=== PATIENT | female | born 1955 | race Caucasian/White ===

== ENCOUNTER 2017-05-12 11:16 | Inpatient (IN) | payer OTHER ==
[2017-05-12] MEDS ORDERED: DIPH/PERTUSS(ACELL)/TETANUS VAC/PF 0.5 ML SYR (>=10YO) IM ONE (11:29)
[2017-05-12] MEDS ORDERED: HYDROMORPHONE HCL INJ/PF 2 MG/ML AMPULE IV ONE (11:29)
[2017-05-12] MEDS ORDERED: ONDANSETRON HCL INJ/PF 4 MG/2 ML SDV IV ONE (11:29)
--- NOTE | 2017-05-12 11:36 | ER Document Report ---
ED Fall - General Mode of Arrival: Medic Information source: Patient - HPI Occurred: Just prior to arrival Where: Outdoors Context: Lost balance Associated symptoms: Other - see notes above Location of injury/pain: Lower extremity - left lower <JANE FORD - Last Filed: 05/12/17 12:59> <RYANSHADY - Last Filed: 05/12/17 14:18> - General Chief Complaint: Fall Injury Stated Complaint: FALL/LEFT HIP PAIN Time Seen by Provider: 05/12/17 11:19 Notes: 61-year-old female with no known prior medical problems (hasn't seen a physician in 'years') presents to the ED via EMS complaining of left leg pain after falling approximately 2.5-3 feet off stairs onto a concrete floor just prior to arrival. Patient reports that she was standing on stairs cleaning a window when she went to stretch, lost her balance, and proceeded to fall. Patient was not able to walk on her left leg after the fall. Patient reports nausea, but denies hitting her head, loss consciousness, shortness of breath, chest pain, or abdominal pain. Patient is not on any blood thinning medications. (JANE FORD) - Related data Allergies/Adverse Reactions: No Known Allergies Allergy (Verified 05/12/17 11:19) Home Medications: Current Home Medications No Home Medications 05/12/17 [History] Past Medical History - General Information source: Patient - Social History Smoking Status: Never Smoker Chew tobacco use (# tins/day): No Frequency of alcohol use: None Drug Abuse: None Family History: Reviewed & Not Pertinent Past Surgical History: Reports: Hx Tubal Ligation <JANE FORD - Last Filed: 05/12/17 12:59> Review of Systems - Review of Systems Constitutional: No symptoms reported EENT: No symptoms reported Cardiovascular: No symptoms reported. denies: Chest pain Respiratory: No symptoms reported. denies: Short of breath Gastrointestinal: See HPI, Nausea. denies: Abdominal pain Genitourinary: No symptoms reported Female Genitourinary: No symptoms reported Musculoskeletal: See HPI, Other - left leg pain Skin: No symptoms reported Hematologic/Lymphatic: No symptoms reported Neurological/Psychological: No symptoms reported. denies: Lost consciousness -: Yes All other systems reviewed and negative <JANE FORD - Last Filed: 05/12/17 12:59> Physical Exam <JANE FORD - Last Filed: 05/12/17 12:59> <SHADY MCKEON - Last Filed: 05/12/17 14:18> - Vital signs Vitals: Temp Pulse Resp BP Pulse Ox 97.6 F 93 16 157/72 H 96 05/12/17 11:19 05/12/17 11:19 05/12/17 11:19 05/12/17 11:19 05/12/17 11:19 - Notes Notes: GENERAL: Alert, interacts well. No acute distress. HEAD: Normocephalic, atraumatic. EYES: Pupils equal, round, and reactive to light. Extraocular movements intact. ENT: Oral mucosa moist, tongue midline. NECK: Full range of motion. Supple. Trachea midline. LUNGS: Clear to auscultation bilaterally, no wheezes, rales, or rhonchi. No respiratory distress. HEART: Regular rate and rhythm. No murmurs, gallops, or rubs. ABDOMEN: Soft, non-tender. Non-distended. Bowel sounds present in all 4 quadrants. EXTREMITIES: No edema, radial and dorsalis pedis pulses 2/4 bilaterally. No cyanosis. Left lower extremity appears shortened, externally rotated, and is propped on a pillow. There is a superficial abrasion to the right medial malleolus. Bilateral toes are able to move. Normal sensation to the right foot with fainter sensation to the left foot. Pelvis is stable. There is tenderness to palpation to the greater trochanter and upper thigh of the left lower extremity. NEUROLOGICAL: Alert and oriented x3. Normal speech. PSYCH: Normal affect, normal mood. SKIN: Warm, dry, normal turgor. (JANE FORD) Course - Laboratory Result Diagrams: 05/12/17 12:38 05/12/17 12:38 - Consults Dr. Mary Time consulted: 12:06 Dr. Pham Time consulted: 12:08 <JANE FORD - Last Filed: 05/12/17 12:59> - Laboratory Result Diagrams: 05/12/17 12:38 05/12/17 12:38 <SHADY MCKEON - Last Filed: 05/12/17 14:18> - Re-evaluation Re-evalutation: 05/12/17 14:07 X-ray shows comminuted left hip fracture intertrochanteric and proximal left femur. Discussed with Dr. Mary who asked that the patient be admitted by the hospitalist service given the unknown prior medical history. Hospitalist service under Dr. Pham agrees to admit the patient, Dr. Mary will consult. Patient will have surgery tomorrow. Preoperative blood work was ordered and shows hyperglycemia as well as a leukocytosis, no abnormality in coagulation. EKG is nonischemic. (SHADY MCKEON) - Vital Signs Vital signs: Temp Pulse Resp BP Pulse Ox 97.3 F 63 16 156/71 H 100 05/12/17 14:04 05/12/17 14:04 05/12/17 14:04 05/12/17 14:04 05/12/17 14:04 - Laboratory Laboratory results interpreted by me: 05/12/17 05/12/17 12:38 12:38 WBC 13.9 H Seg Neutrophils % 84.9 H Lymphocytes % 9.1 L Absolute Neutrophils 11.8 H BUN 25 H Glucose 182 H - Consults Dr. Mary Reason for consultation: 05/12/17 12:06 Patient was discussed with Dr. Mary who asks to contact the hospitalist and have them starts pre-op work up and to admit secondary to unknown past medical history 05/12/17 12:12 Dr. Mary was notified that the patient will be admitted. (JANE FORD) Dr. Pham Reason for consultation: 05/12/17 12:08 Patient was discussed with Dr. Pham and will admit the patient for pre-op and surgical clearance. (JANE FORD) Discharge <JANE FORD - Last Filed: 05/12/17 12:59> - Discharge Admitting Provider: Errolist - [facility] Admitted: Telemetry <SHADY MCKEON - Last Filed: 05/12/17 14:18> - Discharge Clinical Impression: Hip fracture Qualifiers: Encounter type: initial encounter Fracture type: closed Laterality: left Qualified Code(s): S72.002A - Fracture of unspecified part of neck of left femur , initial encounter for closed fracture Condition: Good Disposition: ADMITTED INPATIENT Scribe Attestation: 05/12/17 14:18 I personally performed the services described in the documentation, reviewed and edited the documentation which was dictated to the scribe in my presence, and it accurately records my words and actions. (SHADY MCKEON) Scribe Documentation - Scribe Written by Scribe:: Chinyere Cruz, 05/12/2017 1216 acting as scribe for :: Ryan <JANE FORD - Last Filed: 05/12/17 12:59>
--- NOTE | 2017-05-12 12:34 | RADIOLOGY REPORT (SQ) ---
EXAM DESCRIPTION: CHEST SINGLE VIEW COMPLETED DATE/TIME: 05/12/2017 12:02 pm REASON FOR STUDY: FALL COMPARISON: None. EXAM PARAMETERS: NUMBER OF VIEWS: One view. TECHNIQUE: Single frontal radiographic view of the chest acquired. RADIATION DOSE: NA LIMITATIONS: None. FINDINGS: LUNGS AND PLEURA: No opacities, masses or pneumothorax. No pleural effusion. MEDIASTINUM AND HILAR STRUCTURES: No masses. Contour normal. HEART AND VASCULAR STRUCTURES: Heart normal in size. Normal vasculature. BONES: No acute findings. HARDWARE: None in the chest. OTHER: No other significant finding. IMPRESSION: NO ACUTE RADIOGRAPHIC FINDING IN THE CHEST. TECHNICAL DOCUMENTATION: JOB ID: [id number]
--- NOTE | 2017-05-12 12:36 | RADIOLOGY REPORT (SQ) ---
EXAM DESCRIPTION: FEMUR LEFT COMPLETED DATE/TIME: 05/12/2017 12:02 pm REASON FOR STUDY: fall COMPARISON: None. NUMBER OF VIEWS: Two views. TECHNIQUE: Two radiographic images acquired of the left femur to include hip and knee in at least on e projection. LIMITATIONS: None. FINDINGS: MINERALIZATION: Osteopenic BONES: Acute comminuted intertrochanteric fracture left proximal femur with large lesser trochanter a nd greater trochanter fragments. Mild foreshortening and varus angulation at the fracture site. Rem ainder of the visualized left femur is intact. SOFT TISSUES: No obvious swelling or foreign body. OTHER: No other significant finding. IMPRESSION: Acute comminuted intertrochanteric left proximal femoral fracture TECHNICAL DOCUMENTATION: JOB ID: [id number] [employer]- All Rights Reserved
--- NOTE | 2017-05-12 12:37 | RADIOLOGY REPORT (SQ) ---
EXAM DESCRIPTION: PELVIS AP COMPLETED DATE/TIME: 05/12/2017 12:02 pm REASON FOR STUDY: fall, L leg rotated and shortened COMPARISON: Left femur films same date NUMBER OF VIEWS: One view TECHNIQUE: AP Pelvis LIMITATIONS: None. FINDINGS: MINERALIZATION: Osteopenia HIPS: Acute comminuted left intertrochanteric proximal femoral fracture with varus angulation and mil d foreshortening. No significant left or right hip joint space narrowing. No right hip fracture. PELVIS AND SACRUM: No acute fracture or dislocation. No worrisome bone lesions. PUBIS AND ISCHIUM: No acute fracture. LOWER LUMBAR SPINE: No significant findings as visualized. SOFT TISSUES: No findings. OTHER: No other significant finding. IMPRESSION: Acute comminuted left intertrochanteric proximal femoral fracture with varus angulation and mild foreshortening TECHNICAL DOCUMENTATION: JOB ID: [id number] [employer]- All Rights Reserved
[2017-05-12] MEDS ORDERED: PROMETHAZINE HCL INJ 25 MG/1 ML VIAL IM ONE (12:44)
[2017-05-12 12:49] LABS: ABSOLUTE LYMPHOCYTES (AUTO) 1.3 10^3/uL (0.5-4.7); ABSOLUTE MONOCYTES (AUTO) 0.8 10^3/uL (0.1-1.4); ABSOLUTE NEUT (AUTO) 11.8 10^3/uL (1.7-8.2); BASOPHILS % (AUTO) 0.3 % (0-2); EOSINOPHILS % (AUTO) 0.3 % (0-6); HEMATOCRIT 37.9 % (36.0-47.0); HEMOGLOBIN 12.7 g/dL (12.0-15.5); HGB HCT DIFFERENCE 0.2; LYMPHOCYTES % (AUTO) 9.1 % (13-45); MEAN CORPUSCULAR HEMOGLOBIN 31.3 pg (27.0-33.4); MEAN CORPUSCULAR HGB CONC 33.5 g/dL (32.0-36.0); MEAN CORPUSCULAR VOLUME 93 fl (80-97); MONOCYTES % (AUTO) 5.4 % (3-13); RED BLOOD COUNT 4.06 10^6/uL (3.72-5.28); RED CELL DISTRIBUTION WIDTH 12.6 % (11.5-14.0); SEGMENTED NEUTROPHILS % (AUTO) 84.9 % (42-78); WHITE BLOOD COUNT 13.9 10^3/uL (4.0-10.5)
[2017-05-12 13:05] LABS: PROTHROMBIN TIME 12.6 SEC (11.4-15.4)
[2017-05-12 13:09] LABS: ALANINE AMINOTRANSFERASE 42 U/L (9-52); ALBUMIN 3.9 g/dL (3.5-5.0); ALKALINE PHOSPHATASE 52 U/L (38-126); ANION GAP 11 (5-19); ASPARTATE AMINO TRANSFERASE 24 U/L (14-36); BILIRUBIN,DIRECT 0.2 mg/dL (0.0-0.4); BILIRUBIN,TOTAL 0.6 mg/dL (0.2-1.3); BLOOD UREA NITROGEN 25 mg/dL (7-20); CALCIUM 8.8 mg/dL (8.4-10.2); CARBON DIOXIDE 23 mmol/L (22-30); CHLORIDE 104 mmol/L (98-107); CREATININE RESULT 0.82 mg/dL (0.52-1.25); GLUCOSE 182 mg/dL (75-110); SODIUM 138.4 mmol/L (137-145); TOTAL PROTEIN 6.8 g/dL (6.3-8.2)
--- NOTE | 2017-05-12 13:37 | PDOC CONSULTATION ---
Consultation Consult Date: 05/12/17 Consult reason:: Left hip fracture History of Present Illness History of Present Illness: BETTY ALONSO is a 61 year old female contributory past medical history who fell off a ladder onto her left hip sustaining a left hip injury. She was unable to weight-bear. She is brought to the emergency room her left intratrochanteric femur fracture was identified. Orthopedics was consulted for fracture management. Past Medical History Cardiac Medical History: Reports: None Past Surgical History Past Surgical History: Reports: Tubal Ligation Social History Information Source: Patient, [facility] Records Lives with: Family Smoking Status: Never Smoker Frequency of Alcohol Use: None Hx Recreational Drug Use: No Hx Prescription Drug Abuse: No Family History Family History: Reviewed & Not Pertinent Parental Family History Reviewed: No Children Family History Reviewed: No Sibling(s) Family History Reviewed.: No Medication/Allergy Home Medications: No Home Medications 05/12/17 Allergies/Adverse Reactions: No Known Allergies Allergy (Verified 05/12/17 11:19) Review of Systems All systems: as per [facility] Physical Exam Vital Signs: Temp Pulse Resp BP Pulse Ox 36.4 C 93 18 157/72 H 96 05/12/17 11:19 05/12/17 11:19 05/12/17 11:20 05/12/17 11:19 05/12/17 11:19 Intake & Output 05/11/17 05/12/17 05/13/17 06:59 06:59 06:59 Weight 64.592 kg Physical Exam: This is a very moderately built middle-aged white female lying on [facility] with the left lower extremity flexed on a pillow. She is in minor to moderate distress. General appearance: PRESENT: severe distress Head exam: PRESENT: normocephalic Eye exam: PRESENT: EOMI Respiratory exam: PRESENT: unlabored Cardiovascular exam: PRESENT: RRR Pulses: PRESENT: +1 pedal pulses bilateral Vascular exam: PRESENT: normal capillary refill GI/Abdominal exam: PRESENT: soft Rectal exam: PRESENT: deferred Extremities exam: PRESENT: other - Left lower extremity is flexed on a pillow. There is brisk capillary refill in the toes. Sensory examination is intact to light touch. Motor function to great toe flexion extension is intact. Neurological exam: PRESENT: alert, awake, oriented to person, oriented to place , oriented to time, oriented to situation, CN II-XII grossly intact. ABSENT: motor sensory deficit Psychiatric exam: PRESENT: appropriate affect, normal mood. ABSENT: homicidal ideation, suicidal ideation Skin exam: PRESENT: dry, intact, warm. ABSENT: cyanosis, rash Results Laboratory Results: 05/12/17 12:38 05/12/17 12:38 05/12/17 05/12/17 12:38 12:38 WBC 13.9 H RBC 4.06 Hgb 12.7 Hct 37.9 MCV 93 MCH 31.3 MCHC 33.5 RDW 12.6 Plt Count 252 Seg Neutrophils % 84.9 H Lymphocytes % 9.1 L Monocytes % 5.4 Eosinophils % 0.3 Basophils % 0.3 Absolute Neutrophils 11.8 H Absolute Lymphocytes 1.3 Absolute Monocytes 0.8 Absolute Eosinophils 0.0 Absolute Basophils 0.0 Sodium 138.4 Potassium 4.0 Chloride 104 Carbon Dioxide 23 Anion Gap 11 BUN 25 H Creatinine 0.82 Est GFR ( Amer) > 60 Est GFR (Non-Af Amer) > 60 Glucose 182 H Calcium 8.8 Total Bilirubin 0.6 AST 24 ALT 42 Alkaline Phosphatase 52 Total Protein 6.8 Albumin 3.9 Impressions: Chest X-Ray 05/12/17 00:00 IMPRESSION: NO ACUTE RADIOGRAPHIC FINDING IN THE CHEST. Femur X-Ray 05/12/17 00:00 IMPRESSION: Acute comminuted intertrochanteric left proximal femoral fracture Pelvis X-Ray 05/12/17 11:29 IMPRESSION: Acute comminuted left intertrochanteric proximal femoral fracture with varus angulation and mild foreshortening Status: Imported from PACS Assessment & Plan - Diagnosis (1) Intertrochanteric fracture of left femur Is this a current diagnosis for this admission?: YesPlan: 61-year-old white female with a left intratrochanteric femur fracture status post a fall. I believe she would be best served with an open reduction internal fixation under choice anesthesia. Performed tomorrow morning at 8 AM pending medical clearance - Time Time Spent: 50 to 70 Minutes Critical Time spent with patient: 15-24 minutes Anticipated discharge: Home with Homehealth
[2017-05-12] MEDS ORDERED: PROMETHAZINE HCL INJ 50 MG/1 ML VIAL IM ONE (14:00)
[2017-05-12] MEDS ORDERED: PROMETHAZINE HCL 25 MG TABLET PO PRN (14:10)
[2017-05-12] MEDS ORDERED: NORMAL SALINE 1000 ML 1,000 ML IV PRN (14:10)
[2017-05-12] MEDS ORDERED: ONDANSETRON HCL INJ/PF 4 MG/2 ML SDV IV PRN (14:10)
[2017-05-12] MEDS ORDERED: ACETAMINOPHEN 325 MG TABLET PO PRN (14:10)
--- NOTE | 2017-05-12 14:33 | PDOC H&P ---
History of Present Illness Admission Date/PCP: 05/12/17 13:50 Patient complains of: Left hip pain History of Present Illness: BETTY ALONSO is a 61 year old female without any significant past medical history who fell off a ladder onto her left hip sustaining a left hip injury while trying to clean the window in her house. She was unable to weight-bear on the left side and having difficulty walking due to pain. The ambulance was called and the patient was given Dilaudid where she started feeling nauseous after. She was brought to the emergency room and hip x-ray revealed left intratrochanteric femur fracture was identified. Orthopedic service was consulted and requested medical service to admit the patient. Patient denies any dizziness nor lightheadedness nor any chest pain or shortness of breath prior to the episode. Likewise there is no chills or fever nausea nor vomiting or diarrhea. Past Medical History Cardiac Medical History: Reports: None Past Surgical History Past Surgical History: Reports: Tubal Ligation Social History Lives with: Family Smoking Status: Never Smoker Frequency of Alcohol Use: None Hx Recreational Drug Use: No Drugs: None Hx Prescription Drug Abuse: No Family History Family History: Malignancy - Lungs and ovarian Parental Family History Reviewed: Yes Children Family History Reviewed: Yes Sibling(s) Family History Reviewed.: Yes Medication/Allergy Home Medications: No Home Medications 05/12/17 Allergies/Adverse Reactions: No Known Allergies Allergy (Verified 05/12/17 11:19) Review of Systems Constitutional: ABSENT: chills, fever(s), headache(s), night sweats, weight gain , weight loss Eyes: ABSENT: visual disturbances Ears: ABSENT: hearing changes Nose, Mouth, and Throat: ABSENT: headache(s), mouth pain, sore throat, vertigo Cardiovascular: ABSENT: chest pain, dyspnea on exertion, edema, orthropnea, palpitations Respiratory: ABSENT: cough, dyspnea, hemoptysis, sputum Gastrointestinal: PRESENT: nausea. ABSENT: abdominal pain, coffee ground emesis , constipation, diarrhea, hematemesis, hematochezia, melena, vomiting Genitourinary: ABSENT: difficulty urinating, dysuria, hematuria Musculoskeletal: ABSENT: joint swelling Integumentary: ABSENT: pruritus, rash, wounds Neurological: ABSENT: abnormal gait, abnormal speech, confusion, dizziness, focal weakness, syncope Psychiatric: ABSENT: anxiety, depression, homidical ideation, suicidal ideation Endocrine: ABSENT: cold intolerance, heat intolerance, polydipsia, polyuria Hematologic/Lymphatic: ABSENT: easy bleeding, easy bruising Physical Exam Vital Signs: Temp Pulse Resp BP Pulse Ox 97.3 F 63 16 156/71 H 100 05/12/17 14:04 05/12/17 14:04 05/12/17 14:04 05/12/17 14:04 05/12/17 14:04 General appearance: PRESENT: no acute distress, well-developed, well-nourished Head exam: PRESENT: atraumatic, normocephalic Eye exam: PRESENT: conjunctiva pink, EOMI, PERRLA. ABSENT: scleral icterus Ear exam: PRESENT: normal external ear exam Mouth exam: PRESENT: moist, neck supple, tongue midline Throat exam: ABSENT: post pharyngeal erythema, tonsillar erythema Neck exam: ABSENT: carotid bruit, JVD, lymphadenopathy, thyromegaly Respiratory exam: PRESENT: clear to auscultation kerrie. ABSENT: rales, rhonchi, wheezes Cardiovascular exam: PRESENT: RRR. ABSENT: diastolic murmur, rubs, systolic murmur Pulses: PRESENT: normal dorsalis pedis pul Vascular exam: PRESENT: normal capillary refill GI/Abdominal exam: PRESENT: normal bowel sounds, soft. ABSENT: distended, guarding, mass, organolmegaly, rebound, tenderness Rectal exam: PRESENT: deferred Extremities exam: PRESENT: full ROM. ABSENT: calf tenderness, clubbing, pedal edema Neurological exam: PRESENT: alert, awake, oriented to person, oriented to place , oriented to time, oriented to situation Psychiatric exam: PRESENT: appropriate affect, normal mood. ABSENT: agitated, homicidal ideation, suicidal ideation Focused psych exam: ABSENT: restlessness Skin exam: PRESENT: dry, intact, warm. ABSENT: cyanosis, rash Results Impressions: Chest X-Ray 05/12/17 00:00 IMPRESSION: NO ACUTE RADIOGRAPHIC FINDING IN THE CHEST. Femur X-Ray 05/12/17 00:00 IMPRESSION: Acute comminuted intertrochanteric left proximal femoral fracture Pelvis X-Ray 05/12/17 11:29 IMPRESSION: Acute comminuted left intertrochanteric proximal femoral fracture with varus angulation and mild foreshortening Assessment & Plan - Diagnosis (1) Hip fracture Qualifiers: Encounter type: initial encounter Fracture type: closed Laterality : left Qualified Code(s): S72.002A - Fracture of unspecified part of neck of left femur, initial encounter for closed fracture Is this a current diagnosis for this admission?: Yes (2) Hyperglycemia Is this a current diagnosis for this admission?: Yes (3) Leukocytosis Qualifiers: Leukocytosis type: unspecified Qualified Code(s): D72.829 - Elevated white blood cell count, unspecified Is this a current diagnosis for this admission?: Yes (4) Elevated blood pressure reading Is this a current diagnosis for this admission?: Yes - Time Time Spent: 30 to 50 Minutes - Inpatient Certification Based on my medical assessment, after consideration of the patient's comorbidities, presenting symptoms, or acuity I expect that the services needed warrant INPATIENT care.: Yes I certify that my determination is in accordance with my understanding of Medicare's requirements for reasonable and necessary INPATIENT services [42 CFR 412.3e].: Yes Medical Necessity: Need for Pain Control, Need for Surgery - Plan Summary Plan Summary: The patient will be admitted to the medical floor with telemetry. We will consult orthopedics for further evaluation and management. I will put the patient on morphine as needed for pain intravenously. DVT prophylaxis with Lovenox will be placed. In the meantime I will obtain a urinalysis and hemoglobin A1c. We will monitor WBC. Further testing depends on the initial evaluations outlined above.
[2017-05-12] MEDS ORDERED: ENOXAPARIN SODIUM INJ 40 MG/0.4 ML DISP.SYRIN SUBCUT ONE (16:00)
[2017-05-12] MEDS: DOCUSATE SODIUM 100 MG CAPSULE PO SCH (17:52)
[2017-05-12] MEDS: MORPHINE SULFATE 10 MG/ML INJ IV PRN ×2 (18:02→23:23)
[2017-05-13] MEDS ORDERED: RINGERS SOLUTION,LACTATED 1,000 ML IV PRN
[2017-05-13 01:39] LABS: APPEARANCE,URINE CLEAR; BILIRUBIN,URINE NEGATIVE (NEGATIVE); GLUCOSE, URINE >=500 mg/dL (NEGATIVE); KETONES,URINE TRACE mg/dL (NEGATIVE); LEUKOCYTE ESTERASE,URINE NEGATIVE (NEGATIVE); NITRITE,URINE NEGATIVE (NEGATIVE); PROTEIN,URINE NEGATIVE (NEGATIVE); URINE SPECIFIC GRAVITY 1.023; UROBILINOGEN,URINE NEGATIVE mg/dL (<2.0)
[2017-05-13] MEDS ORDERED: CEFAZOLIN 2 GM/D5W RTU 2 GM/50 ML RTUPB IV PRN (05:00)
[2017-05-13] MEDS: LANSOPRAZOLE 30 MG TAB.RAP.DR PO SCH (05:10)
[2017-05-13] MEDS: MORPHINE SULFATE 10 MG/ML INJ IV PRN ×3 (05:18→20:00)
[2017-05-13 06:24] LABS: ABSOLUTE LYMPHOCYTES (AUTO) 1.7 10^3/uL (0.5-4.7); BASOPHILS % (AUTO) 0.3 % (0-2); EOSINOPHILS % (AUTO) 0.3 % (0-6); HEMOGLOBIN 11.5 g/dL (12.0-15.5); HGB HCT DIFFERENCE -0.5; MEAN CORPUSCULAR HEMOGLOBIN 31.6 pg (27.0-33.4); MEAN CORPUSCULAR HGB CONC 32.9 g/dL (32.0-36.0); MEAN CORPUSCULAR VOLUME 96 fl (80-97); MONOCYTES % (AUTO) 10.5 % (3-13); RED BLOOD COUNT 3.65 10^6/uL (3.72-5.28); RED CELL DISTRIBUTION WIDTH 12.9 % (11.5-14.0); SEGMENTED NEUTROPHILS % (AUTO) 71.9 % (42-78); WHITE BLOOD COUNT 9.7 10^3/uL (4.0-10.5)
[2017-05-13 06:38] LABS: ANION GAP 6 (5-19); BLOOD UREA NITROGEN 20 mg/dL (7-20); CALCIUM 8.7 mg/dL (8.4-10.2); CARBON DIOXIDE 27 mmol/L (22-30); CHLORIDE 105 mmol/L (98-107); CREATININE RESULT 0.76 mg/dL (0.52-1.25); GLUCOSE 81 mg/dL (75-110); SODIUM 137.7 mmol/L (137-145)
[2017-05-13 06:52] LABS: POTASSIUM 5.6 mmol/L (3.6-5.0)
[2017-05-13] MEDS ORDERED: MIDAZOLAM 2 MG/2 ML INJ ONE (07:55)
[2017-05-13] MEDS ORDERED: LIDOCAINE 2% INJ-PF (20 MG/ML) 10 ML AMPUL ONE (07:55)
[2017-05-13] MEDS ORDERED: KETAMINE HCL INJ 500 MG/10 ML VIAL ONE (07:55)
[2017-05-13] MEDS ORDERED: ACETAMINOPHEN 100 ML IV ONE (07:56)
[2017-05-13] MEDS ORDERED: IBUPROFEN INJ 800 MG/8 ML VIAL IV ONE (07:56)
[2017-05-13] MEDS ORDERED: PROPOFOL INJ 200 MG/20 ML VIAL IV ONE (07:56)
[2017-05-13] MEDS ORDERED: CEFAZOLIN INJ 1 GM VIAL ONE (07:58)
[2017-05-13] MEDS ORDERED: MORPHINE SULFATE 10 MG/ML INJ IV PRN (08:34)
[2017-05-13] MEDS ORDERED: ONDANSETRON HCL INJ/PF 4 MG/2 ML SDV IV PRN ×2 (08:34→09:11)
[2017-05-13] MEDS ORDERED: MEPERIDINE HCL/PF INJ 25 MG/1 ML DISP.SYRIN IV PRN (08:34)
[2017-05-13] MEDS ORDERED: OXYCODONE-ACETAMINOPHEN 5-325 MG TABLET PO PRN ×2 (08:34)
[2017-05-13] MEDS ORDERED: PROMETHAZINE HCL INJ 25 MG/1 ML VIAL IV PRN ×2 (08:34)
[2017-05-13] MEDS ORDERED: FENTANYL CITRATE INJ/PF 100 MCG/2 ML AMPUL IV PRN ×3 (08:34)
[2017-05-13] MEDS ORDERED: DIPHENHYDRAMINE HCL 50 MG/ML VIAL IV PRN (08:34)
--- NOTE | 2017-05-13 08:57 | Operative Report ---
Operative Report DATE OF SURGERY: 05/13/17 PREOPERATIVE DIAGNOSIS: Left intertrochanteric femur fracture OPERATION: Reduction internal fixation left intertrochanteric femur fracture SURGEON: KETTY MEAD ANESTHESIA: Spinal ESTIMATED BLOOD LOSS: 100 PROCEDURE: The patient supine on the fracture table the left lower extremity is manipulated under fluoroscopic guidance to affected near anatomic reduction. Subsequently extremities prepped and draped in a sterile fashion. A pin is placed percutaneously through the greater trochanter down into the proximal metadiaphyseal canal. A combined reamer was used to fashion a cortical opening. This hardware was removed and a ball-tipped guide raya was then placed down the femur. Femoral length measures 360 mm. Flexible reamers were then used to enlarge the medullary canal to 12 mm. Subsequently a [employer] gamma 3 11 x 130 by 360 mm passed down over the ball-tipped guide raya to appropriate depth for proximal interlock. A pin is then placed in line with the proximal guide raya. Measured to be 95 mm. A combined reamers to fashion the cortical opening and subsequent to leave the 10 x 95 mm proximal interlock is placed and secured with a set screw from above. Lastly a 47.5 x 5 mm distal interlock was placed to the dynamic distal hole under fluoroscopic guidance freehand. Wounds are irrigated and closed with interrupted Vicryl followed by emily. Sterile dressings were applied and the patient's return to the PACU in satisfactory condition.
[2017-05-13] MEDS ORDERED: ENOXAPARIN SODIUM INJ 40 MG/0.4 ML DISP.SYRIN SUBCUT SCH (10:00)
--- NOTE | 2017-05-13 10:20 | RADIOLOGY REPORT (SQ) ---
EXAM DESCRIPTION: HIP IN OPERATING RM; NO CHG FLUORO COMPLETED DATE/TIME: 05/13/2017 10:09 am REASON FOR STUDY: LEFT HIP FX COMPARISON: None. FLUOROSCOPY TIME: 0.5 minutes 4 images saved to PACS. TECHNIQUE: Intra-operative images acquired during surgical procedure to evaluate progress. NUMBER OF IMAGES: 4 LIMITATIONS: None FINDINGS: Internal fixation intertrochanteric fracture with intramedullary raya traversing Pin. IMPRESSION: IMAGE(S) OBTAINED DURING PROCEDURE. COMMENT: Quality ID [id number]: Final reports for procedures using fluoroscopy that document radiation exp osure indices, or exposure time and number of fluorographic images (if radiation exposure indices are not available) Please consult full operative report of the attending physician for description of the procedure. TECHNICAL DOCUMENTATION: JOB ID: [id number] [employer]- All Rights Reserved
--- NOTE | 2017-05-13 10:20 | RADIOLOGY REPORT (SQ) ---
EXAM DESCRIPTION: HIP IN OPERATING RM; NO CHG FLUORO COMPLETED DATE/TIME: 05/13/2017 10:09 am REASON FOR STUDY: LEFT HIP FX COMPARISON: None. FLUOROSCOPY TIME: 0.5 minutes 4 images saved to PACS. TECHNIQUE: Intra-operative images acquired during surgical procedure to evaluate progress. NUMBER OF IMAGES: 4 LIMITATIONS: None FINDINGS: Internal fixation intertrochanteric fracture with intramedullary raya traversing Pin. IMPRESSION: IMAGE(S) OBTAINED DURING PROCEDURE. COMMENT: Quality ID [id number]: Final reports for procedures using fluoroscopy that document radiation exp osure indices, or exposure time and number of fluorographic images (if radiation exposure indices are not available) Please consult full operative report of the attending physician for description of the procedure. TECHNICAL DOCUMENTATION: JOB ID: [id number]- All Rights Reserved
[2017-05-13] MEDS: DOCUSATE SODIUM 100 MG CAPSULE PO SCH ×2 (10:21→18:33)
--- NOTE | 2017-05-13 11:57 | PDOC PROGRESS REPORT ---
Subjective Progress Note for:: 05/13/17 Subjective:: Hip pain is better. Denies SOB, chills, nor fever. No N/V, CP. Patient had hip surgery an tolerated it well. Physical Exam Vital Signs: Temp Pulse Resp BP Pulse Ox 98.2 F 75 15 120/65 98 05/13/17 09:50 05/13/17 09:50 05/13/17 09:50 05/13/17 09:50 05/13/17 09:50 Intake & Output 05/12/17 05/13/17 05/14/17 06:59 06:59 06:59 Intake Total 1070 1100 Output Total 720 550 Balance 350 550 Weight 66.2 kg General appearance: PRESENT: no acute distress, cooperative Head exam: PRESENT: normocephalic Eye exam: PRESENT: EOMI Mouth exam: PRESENT: moist, neck supple Neck exam: ABSENT: JVD Respiratory exam: PRESENT: clear to auscultation kerrie. ABSENT: rhonchi, wheezes Cardiovascular exam: PRESENT: RRR. ABSENT: gallop GI/Abdominal exam: PRESENT: hypoactive bowel sounds, soft. ABSENT: distended, tenderness Extremities exam: ABSENT: pedal edema Neurological exam: PRESENT: alert, awake, oriented to person, oriented to place , oriented to time, oriented to situation Skin exam: PRESENT: dry, warm. ABSENT: cyanosis Results Laboratory Results: 05/13/17 05:24 05/13/17 05:24 05/13/17 05/13/17 05/13/17 01:15 05:24 05:24 WBC 9.7 RBC 3.65 L Hgb 11.5 L Hct 35.0 L MCV 96 MCH 31.6 MCHC 32.9 RDW 12.9 Plt Count 241 Seg Neutrophils % 71.9 Lymphocytes % 17.0 Monocytes % 10.5 Eosinophils % 0.3 Basophils % 0.3 Absolute Neutrophils 7.0 Absolute Lymphocytes 1.7 Absolute Monocytes 1.0 Absolute Eosinophils 0.0 Absolute Basophils 0.0 Sodium 137.7 Potassium 5.6 H D Chloride 105 Carbon Dioxide 27 Anion Gap 6 BUN 20 Creatinine 0.76 Est GFR ( Amer) > 60 Est GFR (Non-Af Amer) > 60 Glucose 81 Calcium 8.7 Urine Color YELLOW Urine Appearance CLEAR Urine pH 7.0 Ur Specific [place] 1.023 Urine Protein NEGATIVE Urine Glucose (UA) >=500 H Urine Ketones TRACE H Urine Blood NEGATIVE Urine Nitrite NEGATIVE Ur Leukocyte Esterase NEGATIVE Urine WBC (Auto) 1 Urine RBC (Auto) 1 Impressions: Chest X-Ray 05/12/17 00:00 IMPRESSION: NO ACUTE RADIOGRAPHIC FINDING IN THE CHEST. Femur X-Ray 05/12/17 00:00 IMPRESSION: Acute comminuted intertrochanteric left proximal femoral fracture Pelvis X-Ray 05/12/17 11:29 IMPRESSION: Acute comminuted left intertrochanteric proximal femoral fracture with varus angulation and mild foreshortening Fluoroscopy 05/13/17 00:00 IMPRESSION: IMAGE(S) OBTAINED DURING PROCEDURE. Hip X-Ray 05/13/17 00:00 IMPRESSION: IMAGE(S) OBTAINED DURING PROCEDURE. Assessment & Plan - Diagnosis (1) Hip fracture Qualifiers: Encounter type: initial encounter Fracture type: closed Laterality : left Qualified Code(s): S72.002A - Fracture of unspecified part of neck of left femur, initial encounter for closed fracture Is this a current diagnosis for this admission?: Yes (2) Hyperglycemia Is this a current diagnosis for this admission?: Yes (3) Leukocytosis Qualifiers: Leukocytosis type: unspecified Qualified Code(s): D72.829 - Elevated white blood cell count, unspecified Is this a current diagnosis for this admission?: Yes (4) Elevated blood pressure reading Is this a current diagnosis for this admission?: Yes - Time Time Spent with patient: 25-34 minutes - Plan Summary Plan Summary: Elevated BP likely due to pain. Elevated WBC and glucose likely stress induced. Cont. to monitor. H&H dropped probably from surgery/dilutional. K slightly elevated. She did received IVF during surgery. We will re-check in am. Likely hemolyzed.
--- NOTE | 2017-05-13 12:58 | EKG REPORT ---
SEVERITY:- NORMAL ECG - SINUS RHYTHM : Confirmed by: Neva Baptiste MD 13-May-2017 12:56:27
[2017-05-13] MEDS: CEFAZOLIN 2 GM/D5W RTU 2 GM/50 ML RTUPB IV SCH (18:33)
[2017-05-13] MEDS: OXYCODONE HCL IR 5 MG TABLET PO PRN (21:05)
[2017-05-13] MEDS: RIVAROXABAN 10 MG TABLET PO SCH (21:07)
[2017-05-14] MEDS ORDERED: CEFAZOLIN INJ 1 GM VIAL ONE (02:55)
[2017-05-14] MEDS: CEFAZOLIN 2 GM/D5W RTU 2 GM/50 ML RTUPB IV SCH (03:07)
[2017-05-14 06:07] LABS: HEMATOCRIT 28.4 % (36.0-47.0); HEMOGLOBIN 9.5 g/dL (12.0-15.5); HGB HCT DIFFERENCE 0.1; MEAN CORPUSCULAR HEMOGLOBIN 31.7 pg (27.0-33.4); MEAN CORPUSCULAR HGB CONC 33.4 g/dL (32.0-36.0); MEAN CORPUSCULAR VOLUME 95 fl (80-97); RED BLOOD COUNT 2.99 10^6/uL (3.72-5.28); RED CELL DISTRIBUTION WIDTH 12.7 % (11.5-14.0); WHITE BLOOD COUNT 7.6 10^3/uL (4.0-10.5)
[2017-05-14 06:11] LABS: ANION GAP 7 (5-19); BLOOD UREA NITROGEN 14 mg/dL (7-20); CALCIUM 7.8 mg/dL (8.4-10.2); CARBON DIOXIDE 26 mmol/L (22-30); CHLORIDE 105 mmol/L (98-107); CREATININE RESULT 0.76 mg/dL (0.52-1.25); GLUCOSE 100 mg/dL (75-110); SODIUM 137.5 mmol/L (137-145)
[2017-05-14] MEDS: LANSOPRAZOLE 30 MG TAB.RAP.DR PO SCH (06:21)
[2017-05-14 06:22] LABS: POTASSIUM 4.2 mmol/L (3.6-5.0)
[2017-05-14] MEDS: MORPHINE SULFATE 10 MG/ML INJ IV PRN (08:15)
[2017-05-14] MEDS: DOCUSATE SODIUM 100 MG CAPSULE PO SCH ×2 (10:15→17:46)
--- NOTE | 2017-05-14 10:19 | PDOC PROGRESS REPORT ---
Subjective Progress Note for:: 05/14/17 Subjective:: Patient just had physical therapy done. Complains of some soreness and stiffness on the leg. No chills or fever. No shortness of breath or coughing. No chest congestion, PND, orthopnea. No chest pain at all. Physical Exam Vital Signs: Temp Pulse Resp BP Pulse Ox 98.7 F 104 H 18 154/76 H 97 05/14/17 07:25 05/14/17 07:25 05/14/17 07:25 05/14/17 07:25 05/14/17 07:25 Intake & Output 05/13/17 05/14/17 05/15/17 06:59 06:59 06:59 Intake Total 1070 3995 Output Total 720 3100 Balance 350 895 Weight 66.2 kg 73.1 kg General appearance: PRESENT: no acute distress, cooperative Head exam: PRESENT: normocephalic Eye exam: PRESENT: EOMI Mouth exam: PRESENT: moist, neck supple Neck exam: ABSENT: JVD Respiratory exam: PRESENT: clear to auscultation kerrie. ABSENT: rhonchi, wheezes Cardiovascular exam: PRESENT: RRR. ABSENT: gallop GI/Abdominal exam: PRESENT: normal bowel sounds, soft. ABSENT: distended, tenderness Extremities exam: ABSENT: pedal edema Neurological exam: PRESENT: alert, awake, oriented to situation Skin exam: PRESENT: dry, warm. ABSENT: cyanosis Results Laboratory Results: 05/14/17 05:02 05/14/17 05:02 05/14/17 05/14/17 05:02 05:02 WBC 7.6 RBC 2.99 L Hgb 9.5 L Hct 28.4 L MCV 95 MCH 31.7 MCHC 33.4 RDW 12.7 Plt Count 198 Sodium 137.5 Potassium 4.2 D Chloride 105 Carbon Dioxide 26 Anion Gap 7 BUN 14 Creatinine 0.76 Est GFR ( Amer) > 60 Est GFR (Non-Af Amer) > 60 Glucose 100 Calcium 7.8 L Impressions: Chest X-Ray 05/12/17 00:00 IMPRESSION: NO ACUTE RADIOGRAPHIC FINDING IN THE CHEST. Femur X-Ray 05/12/17 00:00 IMPRESSION: Acute comminuted intertrochanteric left proximal femoral fracture Pelvis X-Ray 05/12/17 11:29 IMPRESSION: Acute comminuted left intertrochanteric proximal femoral fracture with varus angulation and mild foreshortening Fluoroscopy 05/13/17 00:00 IMPRESSION: IMAGE(S) OBTAINED DURING PROCEDURE. Hip X-Ray 05/13/17 00:00 IMPRESSION: IMAGE(S) OBTAINED DURING PROCEDURE. Assessment & Plan - Diagnosis (1) Hip fracture Qualifiers: Encounter type: initial encounter Fracture type: closed Laterality : left Qualified Code(s): S72.002A - Fracture of unspecified part of neck of left femur, initial encounter for closed fracture Is this a current diagnosis for this admission?: Yes (2) Hyperglycemia Is this a current diagnosis for this admission?: Yes (3) Leukocytosis Qualifiers: Leukocytosis type: unspecified Qualified Code(s): D72.829 - Elevated white blood cell count, unspecified Is this a current diagnosis for this admission?: Yes (4) Elevated blood pressure reading Is this a current diagnosis for this admission?: Yes - Time Time Spent with patient: 25-34 minutes - Plan Summary Plan Summary: Begin physical therapy. Try muscle relaxant for stiffness and pain control. Hemoglobin hematocrit dropped, we will discontinue intravenous fluid and recheck hemoglobin hematocrit in the morning. Begin Flexeril. Patient possible discharge in the morning with home physical therapy if stable. Case discussed with Dr. Mary.
[2017-05-14] MEDS: OXYCODONE HCL IR 5 MG TABLET PO PRN ×2 (10:25→19:35)
[2017-05-14] MEDS: CYCLOBENZAPRINE HCL 10 MG TABLET PO SCH ×2 (14:57→21:08)
--- NOTE | 2017-05-14 15:07 | PDOC PROGRESS REPORT ---
Subjective Progress Note for:: 05/14/17 Subjective:: Patient complains of pain associated with motion. Physical Exam Vital Signs: Temp Pulse Resp BP Pulse Ox 37.9 C 115 H 18 120/59 L 98 05/14/17 11:48 05/14/17 11:48 05/14/17 11:48 05/14/17 11:48 05/14/17 11:48 Intake & Output 05/13/17 05/14/17 05/15/17 06:59 06:59 06:59 Intake Total 1070 3995 Output Total 720 3100 Balance 350 895 Weight 66.2 kg 73.1 kg General appearance: PRESENT: mild distress Head exam: PRESENT: normocephalic Eye exam: PRESENT: EOMI Respiratory exam: PRESENT: unlabored Cardiovascular exam: PRESENT: RRR Pulses: PRESENT: +1 pedal pulses bilateral Vascular exam: PRESENT: normal capillary refill GI/Abdominal exam: PRESENT: soft Rectal exam: PRESENT: deferred Extremities exam: PRESENT: other - Left lower extremity dressings clean dry and intact. Leg lengths are equal. Distal neurovascular examination is intact. Neurological exam: PRESENT: alert, awake, oriented to person, oriented to place , oriented to time, oriented to situation, CN II-XII grossly intact. ABSENT: motor sensory deficit Psychiatric exam: PRESENT: appropriate affect, normal mood. ABSENT: homicidal ideation, suicidal ideation Skin exam: PRESENT: dry, intact, warm. ABSENT: cyanosis, rash Results Laboratory Results: 05/14/17 05:02 05/14/17 05:02 05/14/17 05/14/17 05:02 05:02 WBC 7.6 RBC 2.99 L Hgb 9.5 L Hct 28.4 L MCV 95 MCH 31.7 MCHC 33.4 RDW 12.7 Plt Count 198 Sodium 137.5 Potassium 4.2 D Chloride 105 Carbon Dioxide 26 Anion Gap 7 BUN 14 Creatinine 0.76 Est GFR ( Amer) > 60 Est GFR (Non-Af Amer) > 60 Glucose 100 Calcium 7.8 L Impressions: Chest X-Ray 05/12/17 00:00 IMPRESSION: NO ACUTE RADIOGRAPHIC FINDING IN THE CHEST. Femur X-Ray 05/12/17 00:00 IMPRESSION: Acute comminuted intertrochanteric left proximal femoral fracture Pelvis X-Ray 05/12/17 11:29 IMPRESSION: Acute comminuted left intertrochanteric proximal femoral fracture with varus angulation and mild foreshortening Fluoroscopy 05/13/17 00:00 IMPRESSION: IMAGE(S) OBTAINED DURING PROCEDURE. Hip X-Ray 05/13/17 00:00 IMPRESSION: IMAGE(S) OBTAINED DURING PROCEDURE. Status: Imported from PACS Assessment & Plan - Diagnosis (1) Intertrochanteric fracture of left femur Is this a current diagnosis for this admission?: YesPlan: 61-year-old white female status post open reduction internal fixation of the left proximal femur fracture. She has made little progress today with physical therapy. - Time Time Spent with patient: 15-24 minutes Anticipated discharge: Home with Homehealth Within: within 48 hours
[2017-05-14] MEDS: RIVAROXABAN 10 MG TABLET PO SCH (21:09)
[2017-05-15 05:28] LABS: HEMATOCRIT 27.2 % (36.0-47.0); HEMOGLOBIN 9.3 g/dL (12.0-15.5); HGB HCT DIFFERENCE 0.7; MEAN CORPUSCULAR HEMOGLOBIN 32.2 pg (27.0-33.4); MEAN CORPUSCULAR HGB CONC 34.2 g/dL (32.0-36.0); MEAN CORPUSCULAR VOLUME 94 fl (80-97); RED BLOOD COUNT 2.88 10^6/uL (3.72-5.28); RED CELL DISTRIBUTION WIDTH 12.9 % (11.5-14.0); WHITE BLOOD COUNT 6.8 10^3/uL (4.0-10.5)
[2017-05-15] MEDS: CYCLOBENZAPRINE HCL 10 MG TABLET PO SCH ×3 (05:49→22:28)
[2017-05-15] MEDS: LANSOPRAZOLE 30 MG TAB.RAP.DR PO SCH (05:49)
[2017-05-15] MEDS: DOCUSATE SODIUM 100 MG CAPSULE PO SCH ×2 (09:49→18:15)
[2017-05-15] MEDS: OXYCODONE HCL IR 5 MG TABLET PO PRN ×2 (09:49→18:15)
--- NOTE | 2017-05-15 17:28 | PDOC PROGRESS REPORT ---
Subjective Progress Note for:: 05/15/17 Subjective:: Complains of some pain associated with her surgery. Physical Exam Vital Signs: Temp Pulse Resp BP Pulse Ox 99.2 F 114 H 16 117/77 98 05/15/17 15:19 05/15/17 15:19 05/15/17 15:19 05/15/17 15:19 05/15/17 15:19 Intake & Output 05/14/17 05/15/17 05/16/17 06:59 06:59 06:59 Intake Total 3995 1350 980 Output Total 3100 2080 Balance 895 -730 980 Weight 73.1 kg 74.6 kg General appearance: PRESENT: no acute distress Eye exam: PRESENT: conjunctiva pink. ABSENT: scleral icterus Mouth exam: PRESENT: moist, tongue midline Neck exam: ABSENT: JVD Respiratory exam: PRESENT: clear to auscultation kerrie. ABSENT: rales, rhonchi, wheezes Cardiovascular exam: PRESENT: RRR. ABSENT: diastolic murmur, rubs, systolic murmur GI/Abdominal exam: PRESENT: normal bowel sounds, soft. ABSENT: distended, guarding, mass, organolmegaly, rebound, tenderness Extremities exam: ABSENT: calf tenderness, clubbing, pedal edema Neurological exam: PRESENT: alert, awake, oriented to person, oriented to place , oriented to time, oriented to situation, CN II-XII grossly intact. ABSENT: motor sensory deficit Psychiatric exam: PRESENT: appropriate affect Skin exam: PRESENT: dry, intact, warm. ABSENT: cyanosis, rash Results Laboratory Results: 05/15/17 05:08 05/14/17 05:02 05/15/17 05:08 WBC 6.8 RBC 2.88 L Hgb 9.3 L Hct 27.2 L MCV 94 MCH 32.2 MCHC 34.2 RDW 12.9 Plt Count 187 Impressions: Chest X-Ray 05/12/17 00:00 IMPRESSION: NO ACUTE RADIOGRAPHIC FINDING IN THE CHEST. Femur X-Ray 05/12/17 00:00 IMPRESSION: Acute comminuted intertrochanteric left proximal femoral fracture Pelvis X-Ray 05/12/17 11:29 IMPRESSION: Acute comminuted left intertrochanteric proximal femoral fracture with varus angulation and mild foreshortening Fluoroscopy 05/13/17 00:00 IMPRESSION: IMAGE(S) OBTAINED DURING PROCEDURE. Hip X-Ray 05/13/17 00:00 IMPRESSION: IMAGE(S) OBTAINED DURING PROCEDURE. Assessment & Plan - Diagnosis (1) Intertrochanteric fracture of left femur Is this a current diagnosis for this admission?: YesPlan: Patient is status post surgical repair. Continue with physical therapy. (2) Elevated blood pressure reading Is this a current diagnosis for this admission?: YesPlan: Blood pressures have remained in the normal range. (3) Hyperglycemia Is this a current diagnosis for this admission?: YesPlan: Had one elevated blood sugar but the rest have been normal. (4) Leukocytosis Qualifiers: Leukocytosis type: unspecified Qualified Code(s): D72.829 - Elevated white blood cell count, unspecified Is this a current diagnosis for this admission?: YesPlan: Resolved - Time Time Spent with patient: 25-34 minutes - Inpatient Certification Medical Necessity: Need Close Monitoring Due to Risk of Patient Decompensation
[2017-05-15] MEDS: RIVAROXABAN 10 MG TABLET PO SCH (22:28)
[2017-05-16] MEDS: OXYCODONE HCL IR 5 MG TABLET PO PRN ×3 (02:58→21:48)
[2017-05-16 04:40] LABS: ABSOLUTE EOSINOPHILS # (AUTO) 0.1 10^3/uL (0.0-0.6); ABSOLUTE LYMPHOCYTES (AUTO) 1.2 10^3/uL (0.5-4.7); ABSOLUTE MONOCYTES (AUTO) 0.7 10^3/uL (0.1-1.4); ABSOLUTE NEUT (AUTO) 3.9 10^3/uL (1.7-8.2); BASOPHILS % (AUTO) 0.7 % (0-2); EOSINOPHILS % (AUTO) 2.2 % (0-6); HEMATOCRIT 27.1 % (36.0-47.0); HEMOGLOBIN 9.1 g/dL (12.0-15.5); HGB HCT DIFFERENCE 0.2; LYMPHOCYTES % (AUTO) 19.6 % (13-45); MEAN CORPUSCULAR HEMOGLOBIN 32.1 pg (27.0-33.4); MEAN CORPUSCULAR HGB CONC 33.7 g/dL (32.0-36.0); MEAN CORPUSCULAR VOLUME 95 fl (80-97); MONOCYTES % (AUTO) 11.3 % (3-13); RED BLOOD COUNT 2.85 10^6/uL (3.72-5.28); RED CELL DISTRIBUTION WIDTH 12.8 % (11.5-14.0); SEGMENTED NEUTROPHILS % (AUTO) 66.2 % (42-78); WHITE BLOOD COUNT 5.9 10^3/uL (4.0-10.5)
[2017-05-16 05:02] LABS: ANION GAP 7 (5-19); BLOOD UREA NITROGEN 21 mg/dL (7-20); CALCIUM 8.1 mg/dL (8.4-10.2); CARBON DIOXIDE 26 mmol/L (22-30); CHLORIDE 103 mmol/L (98-107); CREATININE RESULT 0.72 mg/dL (0.52-1.25); GLUCOSE 121 mg/dL (75-110); POTASSIUM 4.1 mmol/L (3.6-5.0); SODIUM 136.3 mmol/L (137-145)
[2017-05-16] MEDS: CYCLOBENZAPRINE HCL 10 MG TABLET PO SCH ×3 (06:00→21:48)
[2017-05-16] MEDS: LANSOPRAZOLE 30 MG TAB.RAP.DR PO SCH (06:01)
--- NOTE | 2017-05-16 07:31 | PDOC PROGRESS REPORT ---
Subjective Progress Note for:: 05/16/17 Subjective:: Continues to complain of pain with motion Physical Exam Vital Signs: Temp Pulse Resp BP Pulse Ox 36.8 C 110 H 15 132/73 H 98 05/16/17 03:44 05/16/17 03:44 05/16/17 03:44 05/16/17 03:44 05/16/17 03:44 Intake & Output 05/15/17 05/16/17 05/17/17 06:59 06:59 06:59 Intake Total 1350 1420 Output Total 2080 250 Balance -730 1170 Weight 74.6 kg 67.8 kg General appearance: PRESENT: mild distress Head exam: PRESENT: normocephalic Eye exam: PRESENT: EOMI Respiratory exam: PRESENT: unlabored Cardiovascular exam: PRESENT: RRR Pulses: PRESENT: +1 pedal pulses bilateral Vascular exam: PRESENT: normal capillary refill GI/Abdominal exam: PRESENT: soft Rectal exam: PRESENT: deferred Extremities exam: PRESENT: other - Her extremity dressings remain clean dry and intact. Leg lengths are equal. Distal neurovascular examination is intact. Neurological exam: PRESENT: alert, awake, oriented to person, oriented to place , oriented to time, oriented to situation. ABSENT: motor sensory deficit Psychiatric exam: PRESENT: appropriate affect, normal mood. ABSENT: homicidal ideation, suicidal ideation Skin exam: PRESENT: dry, intact, warm. ABSENT: cyanosis, rash Results Laboratory Results: 05/16/17 03:52 05/16/17 03:52 05/16/17 05/16/17 03:52 03:52 WBC 5.9 RBC 2.85 L Hgb 9.1 L Hct 27.1 L MCV 95 MCH 32.1 MCHC 33.7 RDW 12.8 Plt Count 211 Seg Neutrophils % 66.2 Lymphocytes % 19.6 Monocytes % 11.3 Eosinophils % 2.2 Basophils % 0.7 Absolute Neutrophils 3.9 Absolute Lymphocytes 1.2 Absolute Monocytes 0.7 Absolute Eosinophils 0.1 Absolute Basophils 0.0 Sodium 136.3 L Potassium 4.1 Chloride 103 Carbon Dioxide 26 Anion Gap 7 BUN 21 H Creatinine 0.72 Est GFR ( Amer) > 60 Est GFR (Non-Af Amer) > 60 Glucose 121 H Calcium 8.1 L Impressions: Chest X-Ray 05/12/17 00:00 IMPRESSION: NO ACUTE RADIOGRAPHIC FINDING IN THE CHEST. Femur X-Ray 05/12/17 00:00 IMPRESSION: Acute comminuted intertrochanteric left proximal femoral fracture Pelvis X-Ray 05/12/17 11:29 IMPRESSION: Acute comminuted left intertrochanteric proximal femoral fracture with varus angulation and mild foreshortening Fluoroscopy 05/13/17 00:00 IMPRESSION: IMAGE(S) OBTAINED DURING PROCEDURE. Hip X-Ray 05/13/17 00:00 IMPRESSION: IMAGE(S) OBTAINED DURING PROCEDURE. Status: Imported from PACS Assessment & Plan - Diagnosis (1) Intertrochanteric fracture of left femur Is this a current diagnosis for this admission?: YesPlan: 61-year-old white female status post intramedullary nailing of a left intratrochanteric femur fracture. Plan will be for discharge home when functional capacity permits.
[2017-05-16] MEDS ORDERED: LACTULOSE SYRUP 20 GM/30 ML UDCUP PO PRN (09:13)
[2017-05-16] MEDS: DOCUSATE SODIUM 100 MG CAPSULE PO SCH ×2 (09:41→17:28)
--- NOTE | 2017-05-16 11:52 | PDOC PROGRESS REPORT ---
Subjective Progress Note for:: 05/16/17 Subjective:: Complains of constipation Physical Exam Vital Signs: Temp Pulse Resp BP Pulse Ox 99.0 F 114 H 17 118/57 L 96 05/16/17 07:30 05/16/17 07:30 05/16/17 07:30 05/16/17 07:30 05/16/17 07:30 Intake & Output 05/15/17 05/16/17 05/17/17 06:59 06:59 06:59 Intake Total 1350 1420 Output Total 2080 250 Balance -730 1170 Weight 74.6 kg 67.8 kg General appearance: PRESENT: no acute distress Eye exam: PRESENT: conjunctiva pink. ABSENT: scleral icterus Mouth exam: PRESENT: moist, tongue midline Neck exam: ABSENT: JVD Respiratory exam: PRESENT: clear to auscultation kerrie. ABSENT: rales, rhonchi, wheezes Cardiovascular exam: PRESENT: RRR. ABSENT: diastolic murmur, rubs, systolic murmur GI/Abdominal exam: PRESENT: normal bowel sounds, soft. ABSENT: distended, guarding, mass, organolmegaly, rebound, tenderness Extremities exam: ABSENT: calf tenderness, clubbing, pedal edema Neurological exam: PRESENT: alert, awake, oriented to person, oriented to place , oriented to time, oriented to situation, CN II-XII grossly intact. ABSENT: motor sensory deficit Psychiatric exam: PRESENT: appropriate affect Skin exam: PRESENT: dry, intact, warm. ABSENT: cyanosis, rash Results Laboratory Results: 05/16/17 03:52 05/16/17 03:52 05/16/17 05/16/17 03:52 03:52 WBC 5.9 RBC 2.85 L Hgb 9.1 L Hct 27.1 L MCV 95 MCH 32.1 MCHC 33.7 RDW 12.8 Plt Count 211 Seg Neutrophils % 66.2 Lymphocytes % 19.6 Monocytes % 11.3 Eosinophils % 2.2 Basophils % 0.7 Absolute Neutrophils 3.9 Absolute Lymphocytes 1.2 Absolute Monocytes 0.7 Absolute Eosinophils 0.1 Absolute Basophils 0.0 Sodium 136.3 L Potassium 4.1 Chloride 103 Carbon Dioxide 26 Anion Gap 7 BUN 21 H Creatinine 0.72 Est GFR ( Amer) > 60 Est GFR (Non-Af Amer) > 60 Glucose 121 H Calcium 8.1 L Impressions: Chest X-Ray 05/12/17 00:00 IMPRESSION: NO ACUTE RADIOGRAPHIC FINDING IN THE CHEST. Femur X-Ray 05/12/17 00:00 IMPRESSION: Acute comminuted intertrochanteric left proximal femoral fracture Pelvis X-Ray 05/12/17 11:29 IMPRESSION: Acute comminuted left intertrochanteric proximal femoral fracture with varus angulation and mild foreshortening Fluoroscopy 05/13/17 00:00 IMPRESSION: IMAGE(S) OBTAINED DURING PROCEDURE. Hip X-Ray 05/13/17 00:00 IMPRESSION: IMAGE(S) OBTAINED DURING PROCEDURE. Assessment & Plan - Diagnosis (1) Intertrochanteric fracture of left femur Is this a current diagnosis for this admission?: YesPlan: Patient is status post surgical repair. Continue with physical therapy. (2) Elevated blood pressure reading Is this a current diagnosis for this admission?: YesPlan: Blood pressures have remained in the normal range. (3) Hyperglycemia Is this a current diagnosis for this admission?: YesPlan: Had one elevated blood sugar but the rest have been normal. (4) Leukocytosis Qualifiers: Leukocytosis type: unspecified Qualified Code(s): D72.829 - Elevated white blood cell count, unspecified Is this a current diagnosis for this admission?: YesPlan: Resolved (5) Constipation Is this a current diagnosis for this admission?: YesPlan: Will start lactulose as needed. - Time Time Spent with patient: 15-24 minutes - Inpatient Certification Medical Necessity: Need Close Monitoring Due to Risk of Patient Decompensation
[2017-05-16] MEDS: RIVAROXABAN 10 MG TABLET PO SCH (21:49)
[2017-05-17] MEDS: OXYCODONE HCL IR 5 MG TABLET PO PRN ×2 (05:13→11:46)
[2017-05-17] MEDS: LANSOPRAZOLE 30 MG TAB.RAP.DR PO SCH (05:13)
[2017-05-17] MEDS: CYCLOBENZAPRINE HCL 10 MG TABLET PO SCH (05:13)
[2017-05-17 05:14] LABS: ABSOLUTE EOSINOPHILS # (AUTO) 0.2 10^3/uL (0.0-0.6); ABSOLUTE LYMPHOCYTES (AUTO) 1.2 10^3/uL (0.5-4.7); ABSOLUTE MONOCYTES (AUTO) 0.6 10^3/uL (0.1-1.4); ABSOLUTE NEUT (AUTO) 3.2 10^3/uL (1.7-8.2); BASOPHILS % (AUTO) 0.8 % (0-2); HEMATOCRIT 25.2 % (36.0-47.0); HEMOGLOBIN 8.5 g/dL (12.0-15.5); HGB HCT DIFFERENCE 0.3; LYMPHOCYTES % (AUTO) 22.4 % (13-45); MEAN CORPUSCULAR HEMOGLOBIN 32.2 pg (27.0-33.4); MEAN CORPUSCULAR HGB CONC 33.8 g/dL (32.0-36.0); MEAN CORPUSCULAR VOLUME 95 fl (80-97); MONOCYTES % (AUTO) 11.5 % (3-13); RED BLOOD COUNT 2.64 10^6/uL (3.72-5.28); RED CELL DISTRIBUTION WIDTH 12.6 % (11.5-14.0); SEGMENTED NEUTROPHILS % (AUTO) 62.3 % (42-78); WHITE BLOOD COUNT 5.1 10^3/uL (4.0-10.5)
[2017-05-17 05:36] LABS: ANION GAP 5 (5-19); BLOOD UREA NITROGEN 25 mg/dL (7-20); CALCIUM 7.9 mg/dL (8.4-10.2); CARBON DIOXIDE 29 mmol/L (22-30); CHLORIDE 101 mmol/L (98-107); CREATININE RESULT 0.71 mg/dL (0.52-1.25); GLUCOSE 100 mg/dL (75-110); POTASSIUM 5.3 mmol/L (3.6-5.0); SODIUM 135.2 mmol/L (137-145)
--- NOTE | 2017-05-17 06:54 | PDOC DISCHARGE SUMMARY ---
General - Admit/Disc Date/PCP Admission Date/Primary Care Provider: 05/12/17 14:10 Discharge Date: 05/17/17 - Discharge Diagnosis (1) Intertrochanteric fracture of left femur Is this a current diagnosis for this admission?: Yes - Additional Information Resuscitation Status: Full Code Discharge Diet: As Tolerated, Regular Discharge Activity: Balance Activity w/Rest, No Driving, No tub bath Home Medications: Oxycodone HCl [Oxy-Ir 5 mg Tablet] 5 mg PO Q6HP PRN #0 tablet 05/17/17 Rivaroxaban [Xarelto 10 mg Tablet] 10 mg PO QHS #0 tablet 05/17/17 History of Present Illness History of Present Illness: Patient is a 61-year-old white female with a noncontributory past medical history who fell at home and sustained a left lower extremity injury. She was evaluated in the emergency room where a left intratrochanteric femur fracture was identified. She was taken to the operating room and underwent open reduction internal fixation which was uncomplicated. She is returned to the floor in satisfactory condition. Analgesia is appropriate. Physical therapy is slow but eventually leads to 50 foot of ambulation with a rolling walker. Patient subsequently for discharge home with home health nursing and home health physical therapy. Hospital Course Hospital Course: Patient undergoes an open reduction internal fixation which is uncomplicated. She seen postoperatively by physical therapy for weightbearing as tolerated ambulation Physical Exam Vital Signs: Temp Pulse Resp BP Pulse Ox 37.0 C 104 H 13 112/64 98 05/17/17 04:02 05/17/17 04:02 05/17/17 04:02 05/17/17 04:02 05/17/17 04:02 Intake & Output 05/15/17 05/16/17 05/17/17 06:59 06:59 06:59 Intake Total 1350 1420 813 Output Total 2080 250 300 Balance -730 1170 513 Weight 74.6 kg 67.8 kg General appearance: PRESENT: no acute distress Head exam: PRESENT: normocephalic Eye exam: PRESENT: EOMI Respiratory exam: PRESENT: unlabored Cardiovascular exam: PRESENT: RRR Pulses: PRESENT: +1 pedal pulses bilateral Vascular exam: PRESENT: normal capillary refill GI/Abdominal exam: PRESENT: soft Rectal exam: PRESENT: deferred Extremities exam: PRESENT: other - Lower extremity dressings are clean dry and intact. Leg lengths are equal. Distal neurovascular examination is intact. Neurological exam: PRESENT: alert, awake, oriented to person, oriented to place , oriented to time, oriented to situation. ABSENT: motor sensory deficit Psychiatric exam: PRESENT: appropriate affect, normal mood. ABSENT: homicidal ideation, suicidal ideation Skin exam: PRESENT: dry, intact, warm. ABSENT: cyanosis, rash Results Laboratory Results: 05/17/17 04:06 05/17/17 04:06 05/17/17 05/17/17 04:06 04:06 WBC 5.1 RBC 2.64 L Hgb 8.5 L Hct 25.2 L MCV 95 MCH 32.2 MCHC 33.8 RDW 12.6 Plt Count 223 Seg Neutrophils % 62.3 Lymphocytes % 22.4 Monocytes % 11.5 Eosinophils % 3.0 Basophils % 0.8 Absolute Neutrophils 3.2 Absolute Lymphocytes 1.2 Absolute Monocytes 0.6 Absolute Eosinophils 0.2 Absolute Basophils 0.0 Sodium 135.2 L Potassium 5.3 H Chloride 101 Carbon Dioxide 29 Anion Gap 5 BUN 25 H Creatinine 0.71 Est GFR ( Amer) > 60 Est GFR (Non-Af Amer) > 60 Glucose 100 Calcium 7.9 L Impressions: Chest X-Ray 05/12/17 00:00 IMPRESSION: NO ACUTE RADIOGRAPHIC FINDING IN THE CHEST. Femur X-Ray 05/12/17 00:00 IMPRESSION: Acute comminuted intertrochanteric left proximal femoral fracture Pelvis X-Ray 05/12/17 11:29 IMPRESSION: Acute comminuted left intertrochanteric proximal femoral fracture with varus angulation and mild foreshortening Fluoroscopy 05/13/17 00:00 IMPRESSION: IMAGE(S) OBTAINED DURING PROCEDURE. Hip X-Ray 05/13/17 00:00 IMPRESSION: IMAGE(S) OBTAINED DURING PROCEDURE. Status: Imported from PACS Plan Discharge Plan: Discharge home with home health care home health physical therapy, will walker, bedside commode. Weightbearing status is weightbearing as tolerated. Dressings can be changed and left lower extremity as needed. Follow-up with Dr. Mary in the [facility] for surgery in 2 weeks for staple removal. Time Spent: Less than 30 Minutes
[2017-05-17] MEDS: DOCUSATE SODIUM 100 MG CAPSULE PO SCH (09:01)
--- NOTE | 2017-05-17 10:29 | PDOC DISCHARGE SUMMARY ---
General - Admit/Disc Date/PCP Admission Date/Primary Care Provider: 05/12/17 14:10 Discharge Date: 05/17/17 - Discharge Diagnosis (1) Intertrochanteric fracture of left femur Is this a current diagnosis for this admission?: YesSummary: Status post surgical repair by Dr. Mary (2) Elevated blood pressure reading Is this a current diagnosis for this admission?: Yes (3) Hyperglycemia Is this a current diagnosis for this admission?: YesSummary: Resolved (4) Leukocytosis Is this a current diagnosis for this admission?: Yes (5) Constipation Is this a current diagnosis for this admission?: Yes - Additional Information Resuscitation Status: Full Code Discharge Diet: As Tolerated, Regular Discharge Activity: Balance Activity w/Rest, No Driving, No tub bath Home Medications: Oxycodone HCl [Oxy-Ir 5 mg Tablet] 5 mg PO Q6HP PRN #0 tablet 05/17/17 Rivaroxaban [Xarelto 10 mg Tablet] 10 mg PO QHS #0 tablet 05/17/17 History of Present Illness History of Present Illness: BETTY ALONSO is a 61 year old female off a ladder and fractured her hip. She was admitted by the medical service. She has no other significant past medical history Hospital Course Hospital Course: 61-year-old female with no significant past medical history is on the ladder and fractured her hip. The patient underwent surgical repair and has done well with physical therapy. She was noted to have some borderline elevation of her blood glucose when she presented and it has been normal since then. She also has had some elevated blood pressures but they have normalized with control of her pain. He is sent home to do outpatient rehabilitation. Physical Exam Vital Signs: Temp Pulse Resp BP Pulse Ox 98.6 F 102 H 13 112/64 98 05/17/17 04:02 05/17/17 07:00 05/17/17 04:02 05/17/17 04:02 05/17/17 04:02 Intake & Output 05/16/17 05/17/17 05/18/17 06:59 06:59 06:59 Intake Total 1420 1428 Output Total 250 700 Balance 1170 728 Weight 67.8 kg 68.3 kg General appearance: PRESENT: no acute distress Eye exam: PRESENT: conjunctiva pink. ABSENT: scleral icterus Mouth exam: PRESENT: moist, tongue midline Neck exam: ABSENT: carotid bruit, JVD, lymphadenopathy, thyromegaly Respiratory exam: PRESENT: clear to auscultation kerrie. ABSENT: rales, rhonchi, wheezes Cardiovascular exam: PRESENT: RRR. ABSENT: diastolic murmur, rubs, systolic murmur GI/Abdominal exam: PRESENT: normal bowel sounds, soft. ABSENT: distended, guarding, mass, organolmegaly, rebound, tenderness Rectal exam: PRESENT: deferred Neurological exam: PRESENT: alert, awake, oriented to person, oriented to place , oriented to time, oriented to situation, CN II-XII grossly intact. ABSENT: motor sensory deficit Psychiatric exam: PRESENT: appropriate affect Skin exam: PRESENT: dry, intact, warm. ABSENT: cyanosis, rash Results Laboratory Results: 05/17/17 04:06 05/17/17 04:06 05/17/17 05/17/17 04:06 04:06 WBC 5.1 RBC 2.64 L Hgb 8.5 L Hct 25.2 L MCV 95 MCH 32.2 MCHC 33.8 RDW 12.6 Plt Count 223 Seg Neutrophils % 62.3 Lymphocytes % 22.4 Monocytes % 11.5 Eosinophils % 3.0 Basophils % 0.8 Absolute Neutrophils 3.2 Absolute Lymphocytes 1.2 Absolute Monocytes 0.6 Absolute Eosinophils 0.2 Absolute Basophils 0.0 Sodium 135.2 L Potassium 5.3 H Chloride 101 Carbon Dioxide 29 Anion Gap 5 BUN 25 H Creatinine 0.71 Est GFR ( Amer) > 60 Est GFR (Non-Af Amer) > 60 Glucose 100 Calcium 7.9 L Impressions: Chest X-Ray 05/12/17 00:00 IMPRESSION: NO ACUTE RADIOGRAPHIC FINDING IN THE CHEST. Femur X-Ray 05/12/17 00:00 IMPRESSION: Acute comminuted intertrochanteric left proximal femoral fracture Pelvis X-Ray 05/12/17 11:29 IMPRESSION: Acute comminuted left intertrochanteric proximal femoral fracture with varus angulation and mild foreshortening Fluoroscopy 05/13/17 00:00 IMPRESSION: IMAGE(S) OBTAINED DURING PROCEDURE. Hip X-Ray 05/13/17 00:00 IMPRESSION: IMAGE(S) OBTAINED DURING PROCEDURE. Qualifiers PATEINT BEING DISCHARGED WITH ANY OF THE FOLLOWING DIAGNOSIS?: No Plan Discharge Plan: Patient is discharged home in stable condition. Will follow up with Dr. Mary in the next 1-2 weeks Time Spent: Less than 30 Minutes
[2017-05-17 11:45] VITALS: BP 118/63
== END 2017-05-17 12:34 | disposition home health service (06) | DRG 482 ==
LOC: ER 11:16 → EH 13:50 → UNDOADMIN 13:50 → EH 14:10 → 4N 16:12
PROC: 0QS734Z Reposition Left Upper Femur with Internal Fixation Device, Percutaneous Approach (ICD-10-PCS; principal; 2017-05-13 08:00)
DX: S72.142A Displaced intertrochanteric fracture of left femur, initial encounter for closed fracture (principal); W11.XXXA Fall on and from ladder, initial encounter; Y93.9 Activity, unspecified; Y92.9 Unspecified place or not applicable; Y99.9 Unspecified external cause status; I10 Essential (primary) hypertension; R73.9 Hyperglycemia, unspecified; K59.00 Constipation, unspecified
CPT/HCPCS: 01230; 36415; 71010; 72170; 80048; 80053; 81001; 83036; 85025; 85027; 85610; 90471; 90715; 93005; 93010; 96374; 96375; 99285; J0131; J0690; J1170; J1741; J2250; J2270; J2405; J2550; J2704; J3490; J7030; J7120